=== PATIENT | male | born 1975 | race Caucasian/White ===

== ENCOUNTER 2017-06-28 22:08 | Emergency (ER) | payer MEDICAID, OTHER ==
[~2017-06-28] VITALS: Ht 182.9 cm; Wt 104.6 kg
[2017-06-28 22:29] VITALS: BP 169/92
[2017-06-28] MEDS ORDERED: ketorolac trometh. 30mg/ml inj. IM ONE (23:20)
== END 2017-06-28 23:46 | disposition home or self-care (01) ==
LOC: ER 22:09
DX: S63.8X1A Sprain of other part of right wrist and hand, initial encounter (principal); Z88.5 Allergy status to narcotic agent; W01.0XXA Fall on same level from slipping, tripping and stumbling without subsequent striking against object, initial encounter; Y93.89 Activity, other specified; Y92.89 Other specified places as the place of occurrence of the external cause; Y99.8 Other external cause status
CPT/HCPCS: 73090; 96372; 99284; J1885

== ENCOUNTER 2025-04-04 01:30 | Emergency (ER) | payer SELFPAY ==
[~2025-04-04] VITALS: Ht 182.9 cm; Wt 116.0 kg
--- NOTE | 2025-04-04 01:47 | ELECTROCARDIOGRAPH REPORT ---
[facility] Test Date: 2025-04-04 Test Time: 01:45:51 Pat Name: PABLO NAPIER Department: [facility]ER Patient ID: [id number] Room: Gender: M [employer] Treat[employer]: : 1975 Requested By: DEION GERMAIN Order Number: [id number] Reading MD: Dr. Deion Germain Measurements Intervals [place] Rate: 78 P: 39 ME: 149 QRS: 12 QRSD: 98 T: 50 QT: 404 QTc: 461 Interpretive Statements Sinus rhythm Electronically Signed On 04-04-2025 3:01:[address] Deion Germain Please click the below link to view image of tracing.
--- NOTE | 2025-04-04 02:20 | RADIOLOGY REPORT ---
CHEST RADIOGRAPH Indication: CP Technique: 1 view Comparison: None FINDINGS: Lines and Tubes: None. Lungs/Pleura: Basilar linear opacities consistent with scarring/atelectasis. No focal consolidation, pleural effusion or pneumothorax. Cardiomediastinum: Size within normal limits for technique. Other: No acute osseous abnormality. IMPRESSION: 1. No acute cardiopulmonary abnormality.
[2025-04-04 02:35] LABS: MEAN PLATELET VOLUME 8.0 FL (7.4-10.4); RED CELL DISTRIBUTION WIDTH 13.5 % (11.5-14.5)
[2025-04-04 02:57] LABS: CREATININE 0.92 MG/DL (0.60-1.10); PRO BRAIN NATRIURETIC PEPTIDE 61 PG/ML (0-125); TOTAL CARBON DIOXIDE 26.0 MMOL/L (24-32); eCRCL 107 ML/MIN; eGFR 87 ML/MIN
[2025-04-04 03:16] VITALS: BP 192/114; PULSE 78; RESP 16; TEMP 98.4; O2SAT 98
== END 2025-04-04 06:36 | disposition left against medical advice (07) ==
LOC: ER 01:31
DX: R07.9 Chest pain, unspecified (principal); Z88.5 Allergy status to narcotic agent; Z53.21 Procedure and treatment not carried out due to patient leaving prior to being seen by health care provider
CPT/HCPCS: 36415; 71045; 80048; 83880; 84484; 85025; 93005; 99281